=== PATIENT | female | born 1975 | race Caucasian/White ===

== ENCOUNTER 2017-08-12 17:55 | Emergency (ER) | payer MEDICAID ==
[2017-08-12 19:12] LABS: BASOPHILS 0.2 % (0-2); EOSINOPHILS 1.9 % (0-7); HEMATOCRIT 30.2 % (36.0-48.0); HEMOGLOBIN 9.4 g/dL (12-16); IMMATURE GRANULOCYTES 0.2 % (0-5); LYMPHOCYTES 25.1 % (15-50); MCHC 31.1 g/dL (31.0-37.0); MEAN PLATELET VOLUME 10.2 fL (7.4-10.4); MONOCYTES 6.2 % (2-11); NEUTROPHILS 66.4 % (40-80); PLATELET COUNT 290 10x3/uL (130-400); RBC 4.95 10x6/uL (4.00-5.40); RDW 15.9 % (11.5-14.5); WBC 8.2 10x3/uL (4.8-10.8)
[2017-08-12 19:34] LABS: CARBON DIOXIDE 28.5 mmol/L (21.0-32.0); CHLORIDE - SERUM 100 mmol/L (98-107); CREATININE - SERUM 1.9 mg/dL (0.6-1.3); POTASSIUM - SERUM 4.7 mmol/L (3.5-5.1); PRO BNP 2393 pg/mL (0-125); SODIUM 134 mmol/L (136-145); UREA NITROGEN 44 mg/dL (7-18); eGFR NON AFRICAN AMERICAN 31 mL/min (90-120)
[2017-08-12 19:36] LABS: CALC OSMOLALITY 294 mosm/kg (275-300); GLUCOSE 392 mg/dL (74-106); TROPONIN-I < 0.017 ng/mL (0.000-0.060)
[2017-08-12 19:47] LABS: HCG URINE NEGATIVE (NEGATIVE)
[2017-08-12 19:48] LABS: APPEARANCE HAZY (CLEAR); BILIRUBIN NEGATIVE (NEGATIVE); COLOR YELLOW (YELLOW); GLUCOSE 1000 mg/dL (NEGATIVE); KETONE NEGATIVE (NEGATIVE); NITRITE NEGATIVE (NEGATIVE); PROTEIN TRACE mg/dL (NEGATIVE); SPECIFIC GRAVITY 1.015 (1.005-1.020); UROBILINOGEN NORMAL (NORMAL)
[2017-08-12 19:50] LABS: BACTERIA MODERATE /hpf (NONE SEEN); RED CELLS - URINE 0-5 /hpf (0-5)
== END 2017-08-12 20:28 | disposition home or self-care (01) ==
LOC: D.ER 17:55
PROVIDERS: Nurse Practitioner Acute Care
DX: R55 Syncope and collapse (principal); W19.XXXA Unspecified fall, initial encounter; Y93.89 Activity, other specified; Y92.028 Other place in mobile home as the place of occurrence of the external cause; I50.9 Heart failure, unspecified; I10 Essential (primary) hypertension; E11.9 Type 2 diabetes mellitus without complications; Z79.4 Long term (current) use of insulin

== ENCOUNTER 2018-07-29 19:28 | Emergency (ER) | payer MEDICARE ==
[~2018-07-29] VITALS: Ht 175.3 cm; Wt 104.5 kg
[2018-07-29 19:35] VITALS: Ht 175.3 cm; Wt 104.5 kg
[2018-07-29] MEDS ORDERED: CORTISPORIN OTI10 M1 (19:36)
[2018-07-29] MEDS ORDERED: CLEOCIN HCL150 MG PO (20:29)
[2018-07-29 20:38] VITALS: BP 184/87
== END 2018-07-29 20:39 | disposition home or self-care (01) ==
LOC: D.ER 19:28
DX: H60.502 Unspecified acute noninfective otitis externa, left ear (principal); E11.9 Type 2 diabetes mellitus without complications; I11.0 Hypertensive heart disease with heart failure; I50.9 Heart failure, unspecified; I12.9 Hypertensive chronic kidney disease with stage 1 through stage 4 chronic kidney disease, or unspecified chronic kidney disease; N18.9 Chronic kidney disease, unspecified; Z98.84 Bariatric surgery status

== ENCOUNTER 2018-11-15 14:00 | Outpatient (CLI) | payer OTHER, MEDICARE ==
[~2018-11-15] VITALS: Ht 175.3 cm; Wt 99.1 kg
[~2018-11-15 14:00] MED LIST: CLEOCIN HCL150 MG PO; CORTISPORIN OTI10 M1
[2018-11-15 14:52] VITALS: BP 156/66; Ht 175.3 cm; Wt 99.1 kg
--- NOTE | 2018-11-15 19:15 | NUR ---
ARRIVED TO ROOM 2220 PER WC FROM OUTPATIENT DEPT FOR COMPLETION TO BLOOD TRANSFUSION UNDER THE DIRECTION OF DR. FABIO Rao Y/O W/F. MONITORING VS DURING BLOOD TRANSFUSION.
--- NOTE | 2018-11-15 20:30 | NUR ---
DR. JUSTICE WROTE MED AND LAB ORDERS ON DR. MCCARTHY'S PATIENT NOTIFIED MATTHEW CARDONA ORDERS RECEIVED TO CANCEL ALL MEDS AND LABS AND CONTINUE WITH DR. MCCARTHY'S ORDERS FOR TRANSFUSION AND DISCHARGE OUT AFTER BLOOD COMPLETED.
--- NOTE | 2018-11-15 22:30 | NUR ---
NOTIFIED SECURITY OFFICER SUPERVISOR MAREN KATE OF SITUATION. DR. MCCARTHY' ORDES FAXED TO SECURITY OFFICER SUPERVISOR'S OFFICE.
--- NOTE | 2018-11-15 23:15 | NUR ---
IV REMOVED DISCHARGE INSTRUCTIONS GIVEN TO PATIENT. FAMILY AND PATIENT DISCHARGED HOME.
== END 2018-11-15 23:15 | disposition home or self-care (01) ==
LOC: D.OPS 14:00 → D.LAB 14:00 → D.MS 19:02 → D.OPS 23:15
DX: D64.9 Anemia, unspecified (principal); R42 Dizziness and giddiness; R53.83 Other fatigue; Z01.812 Encounter for preprocedural laboratory examination